=== PATIENT | female | born 1960 | race Caucasian/White ===

== ENCOUNTER 2023-06-05 16:06 | Outpatient (RCR) | payer OTHER, SELFPAY | END 2023-06-05 23:59 | disposition home or self-care (01) | LOC: RPT 16:06 | PROVIDERS: ATTENDING PHYSICIAN Anesthesiology; FAMILY PHYSICIAN Internal Medicine | DX: M54.16 Radiculopathy, lumbar region (principal); Z73.6 Limitation of activities due to disability | CPT/HCPCS: 97010; 97110; 97112; 97140 ==

== ENCOUNTER 2023-06-21 16:29 | Outpatient (RCR) | payer OTHER, SELFPAY | END 2023-06-21 23:59 | disposition home or self-care (01) | LOC: RPT 16:29 | PROVIDERS: ATTENDING PHYSICIAN Anesthesiology; FAMILY PHYSICIAN Internal Medicine | DX: M54.16 Radiculopathy, lumbar region (principal); Z73.6 Limitation of activities due to disability | CPT/HCPCS: 97010; 97110 ==

== ENCOUNTER 2023-08-15 06:18 | Inpatient (IN) | payer OTHER, SELFPAY ==
--- NOTE | 2023-07-18 10:11 | CM ---
Patient is scheduled for lumbar spine surgery on 08/15/23. Spoke with patient prior to surgery via telephone. Introduced role of the Orthopedic Navigator. Patient reports that she lives alone in a one story home. There is one step to enter. She
currently functions independently. She has a shower seat and back brace. She has never had VN services. PCP is Regla Pinon.
Discussed orthopedic program, post surgical plans and tentative plan for patient to return home when directed by surgeon. Patient is in agreement with tentative plan and states that her sister will be staying with her initially.
Plan: Orthopedic Navigator will remain available to assist with the care of patient and will reassess discharge needs after surgery.
[2023-07-26 07:44] VITALS: BMI 36.5
[2023-07-26 08:58] LABS: Hematocrit 33.9 % (37.0-47.0); Hemoglobin 10.7 g/dL (12.0-16.0); Mean Corp Hgb Conc. 31.6 g/dL (33.0-37.0); Mean Corpuscular Hgb 26.6 pg (27.0-31.0); Mean Corpuscular Volume 84.1 fL (81.0-99.0); Mean Platelet Volume 9.7 fL (7.4-10.4); Platelet Count 289 10^3/uL (130-400); Red Blood Cell Count 4.03 10^6/uL (4.20-5.40); Red Cell Dist. Width 15.4 % (11.5-14.5); White Blood Cell Count 4.5 10^3/uL (4.8-10.8)
[2023-07-26 09:22] LABS: ALT (SGPT) 22 U/L (0-35); AST (SGOT) 33 U/L (14-36); Albumin 3.8 g/dl (3.5-5.0); Alkaline Phosphatase 69 U/L (38-126); Blood Urea Nitrogen 21 mg/dl (7-17); Calcium 9.3 mg/dl (8.4-10.2); Carbon Dioxide 29 mmol/L (22-30); Chloride 106 mmol/L (98-107); Estimated Creatinine Clearance 77 ml/min; Glucose 79 mg/dl (70-99); Potassium 4.7 mmol/L (3.5-5.1); Sodium 138 mmol/L (135-145); Total Bilirubin 0.5 mg/dl (0.2-1.3); eGFR > 60.00
[2023-07-26 15:17] VITALS: BMI 36.5
[2023-08-15] VITALS (15 sets, daily range): BP systolic 40–141; BP diastolic 67–93; PULSE 82
[2023-08-15] MEDS: TYLENOL 1000 MG PO ×2 (10:56→17:27)
[2023-08-15] MEDS: CELEBREX 200 MG PO (10:57)
[2023-08-15] MEDS: LYRICA 150 MG PO (10:57)
[2023-08-15] MEDS: SKELAXIN 800 MG PO (10:57)
[2023-08-15] MEDS: NORMOSOL-R 1000 IV ×2 (11:15→17:27)
[2023-08-15] MEDS: DILAUDID 0.5 MG IV ×2 (17:06→22:15)
--- NOTE | 2023-08-15 19:41 | PTCARENOTE ---
Received patient from PACU around 1820 via bed in stable condition. Moderate amount of drainage on 4x4 gauze on lower back. Hemovac in place. Patient reeducated on log rolling and not twisting in bed. Daughter at bedside. Call askew in reach.
[2023-08-15] MEDS: ROXICODONE 5 MG PO (20:01)
[2023-08-15] MEDS: COLACE 100 MG PO (20:01)
[2023-08-15] MEDS: SENOKOT 17.1999999999999993 MG PO (20:01)
[2023-08-15] MEDS: ANCEF 5 IV (20:02)
[2023-08-15] MEDS: ZOLOFT PO (20:02)
[2023-08-15] MEDS: KEPPRA 750 MG PO (20:05)
[2023-08-15] MEDS: ROXICODONE 10 MG PO (21:38)
[2023-08-15] MEDS: ATIVAN 0.5 MG PO (21:39)
[2023-08-16] MEDS: LYRICA 75 MG PO ×2 (00:11→10:39)
[2023-08-16] MEDS: TYLENOL 1000 MG PO ×3 (00:11→10:40)
[2023-08-16] MEDS: BENADRYL 25 MG PO (00:11)
[2023-08-16] MEDS: NORMOSOL-R 1000 IV (00:12)
[2023-08-16] MEDS: ROXICODONE 10 MG PO ×2 (01:58→06:05)
[2023-08-16 03:15] VITALS: BP 121/79
[2023-08-16] MEDS: ANCEF 5 IV (04:59)
[2023-08-16 06:07] LABS: Hematocrit 27.2 % (37.0-47.0); Hemoglobin 8.7 g/dL (12.0-16.0)
[2023-08-16 06:36] LABS: Blood Urea Nitrogen 14 mg/dl (7-17); Calcium 8.6 mg/dl (8.4-10.2); Carbon Dioxide 31 mmol/L (22-30); Chloride 102 mmol/L (98-107); Estimated Creatinine Clearance 90 ml/min; Glucose 83 mg/dl (70-99); Sodium 135 mmol/L (135-145); eGFR > 60.00
[2023-08-16 07:50] VITALS: BP 123/74
[2023-08-16] MEDS: ZOLOFT 100 MG PO (07:59)
[2023-08-16] MEDS: COLACE 100 MG PO (07:59)
[2023-08-16] MEDS: ATIVAN 0.5 MG PO (07:59)
[2023-08-16] MEDS: SENOKOT 17.1999999999999993 MG PO (08:00)
[2023-08-16] MEDS: KEPPRA 750 MG PO (08:00)
[2023-08-16] MEDS: NORMOSOL-R IV (08:01)
[2023-08-16] MEDS: NORVASC 5 MG PO (08:01)
--- NOTE | 2023-08-16 08:39 | CM ---
Addendum entered by Peg Espinoza 08/16/23 13:02:
Met with patient and her sister after therapy. Discharge plans were reviewed. They did not express concerns about discharge.
Original Note:
Reviewed chart and held rounds with PT, OT and RN. Patient had planned lumbar spine surgery with Dr. Koehler on 08/15. Met with patient and her daughter at bedside. Confirmed information previously obtained for assessment and discussed discharge plans.
Patient continues to plan to return home at discharge. Her sister and daughter will be staying with her. Reviewed that she will work with PT/OT this morning and that discharge needs will depend on her functional status. However, no needs currently
identified.
Patient has a rolling walker, cane and built in shower seat at home.
Patient will use [facility] pharmacy for discharge prescriptions.
[2023-08-16] MEDS: ROXICODONE 5 MG PO (10:59)
[2023-08-16 11:39] VITALS: BP 111/81; PULSE 75; O2SAT 99
[2023-08-16 11:50] VITALS: BP 119/83
--- NOTE | 2023-08-16 12:58 | W.PN.ORTHO ---
Today's Communication / Plan
-
d/c
Assessment
.
Distal Motor Intact: Yes
Dressing:
Clean, dry and intact.
Assessment:
R knee laxity-XR revealing good alignment of TKA
Plan
.
Surgery / Date: L3-4-5 lami-psf Dr. Koehler 08/15/23
Activity:
Out of bed.
PT/OT
Discharge Plan: Home
Subjective
.
.:
Patient resting comfortably. Reports R knee buckling when walking
Vital Signs and Labs
.
Vital Signs and Labs:
Lab Results
08/16/23 05:52
08/16/23 05:52
Temp Pulse Resp BP Pulse Ox
97.5 F 76 18 119/83 97
08/16/23 11:50 08/16/23 11:50 08/16/23 11:50 08/16/23 11:50 08/16/23 11:50
Physical Exam
-
HEENT: No pallor, cyanosis, or jaundice. Throat clear.
NECK: Supple. No JVD.
RESPIRATORY: Lungs clear to auscultation.
CVS: S1, S2 normal. RRR.� No murmur, rub or gallop.
ABDOMEN: Soft, non-tender. No distension. BS+/normal.
EXTREMITIES: strength equal, no calf pain with palpation
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
--- NOTE | 2023-08-16 13:06 | W.DS.TRANS ---
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
-
Discharge Instructions:
Discharge Diagnosis/Procedures L3-4-5 lami-ps[facility] Dr. Koehler 08/15/23
Diet As tolerated
Activity With Walker
Driving Restrictions No driving
Instructions:
Stand-Alone Forms: [facility] D/[facility].
Changes to Home Medications: Yes
Discharge Medications:
DC Medications w/original date entered in [email or web address]
sertraline 100 mg tablet 100 mg PO DAILY Depression 11/07/16
levetiracetam 250 mg tablet 750 mg PO BID Seizures 05/13/18
zolpidem 5 mg tablet 5 mg PO HSPRN PRN for sleep 05/13/18
amlodipine 10 mg tablet 10 mg PO DAILY ##0 06/04/18
losartan 50 mg tablet 50 mg PO DAILY ##0 06/04/18
cyanocobalamin (vitamin B-12) 5,000 mcg capsule 5,000 mcg PO GRACE Supplement 03/17/23
gabapentin 300 mg capsule 300 mg PO Q8H Neurological Condition 07/23/23
Saccharomyces boulardii 250 mg capsule (Florastor) 250 mg PO BID #1 cap 08/16/23
acetaminophen 325 mg capsule (Tylenol) 650 mg PO QID #2 caps 08/16/23
cephalexin 500 mg capsule 500 mg PO QID infection prevention #20 caps 08/16/23
docusate sodium 100 mg capsule (Colace) 100 mg PO BID stool softner #1 cap 08/16/23
lorazepam 0.5 mg tablet 0.5 mg PO HS #0 tabs 08/16/23
magnesium hydroxide 400 mg/5 mL oral suspension (Milk of Magnesia) 30 ml PO HS PRN Constipation #1 mL 08/16/23
oxycodone 5 mg tablet 5 - 10 mg PO Q6HPRN PRN 1 tab moderate-2 tabs severe pain #30 tabs 08/16/23
prednisone 10 mg tablet 40 mg PO TAPER inflammation #20 tabs 08/16/23
sennosides 8.6 mg tablet (Senokot) 17.2 mg PO BID laxative #2 tabs 08/16/23
Home Medication Changes
cephalexin 500 mg capsule 500 mg PO QID infection prevention #20 caps 08/16/23
lorazepam 0.5 mg tablet 0.5 mg PO HS #0 tabs 08/16/23
oxycodone 5 mg tablet 5 - 10 mg PO Q6HPRN PRN 1 tab moderate-2 tabs severe pain #30 tabs 08/16/23
prednisone 10 mg tablet 40 mg PO TAPER inflammation #20 tabs 08/16/23
Pending Results: No
[2023-08-16] MEDS: DECADRON 6 MG IV (13:11)
[2023-08-16 13:39] VITALS: BP 120/83; PULSE 70; O2SAT 97
== END 2023-08-16 13:39 | disposition home or self-care (01) | DRG 460 ==
LOC: 2 SOUTH 06:18
PROVIDERS: ADMITTING PHYSICIAN Orthopaedic Surgery Orthopaedic Surgery of the Spine; FAMILY PHYSICIAN Internal Medicine; REFERRING PHYSICIAN Physician Assistant Medical
PROC: 0SG1071 Fusion of 2 or more Lumbar Vertebral Joints with Autologous Tissue Substitute, Posterior Approach, Posterior Column, Open Approach (ICD-10-PCS; 2023-08-15)
PROC: 01NB0ZZ Release Lumbar Nerve, Open Approach (ICD-10-PCS; 2023-08-15)
DX: M48.062 Spinal stenosis, lumbar region with neurogenic claudication (principal); E66.9 Obesity, unspecified; G40.909 Epilepsy, unspecified, not intractable, without status epilepticus; I10 Essential (primary) hypertension; E78.5 Hyperlipidemia, unspecified; F32.A Depression, unspecified; F41.9 Anxiety disorder, unspecified; G47.33 Obstructive sleep apnea (adult) (pediatric); D64.9 Anemia, unspecified; M43.16 Spondylolisthesis, lumbar region; Z68.36 Body mass index [BMI] 36.0-36.9, adult
CPT/HCPCS: 36415; 72100; 73560; 76000; 80048; 80053; 85014; 85018; 85027; 86850; 86900; 86901; 87070; 93005; 94660; 97162; 97166; C1713; C1729; C1776

== ENCOUNTER 2023-10-15 17:51 | Outpatient (RCR) | payer OTHER, SELFPAY | END 2023-10-15 23:59 | disposition home or self-care (01) | LOC: RPT 17:51 | PROVIDERS: ATTENDING PHYSICIAN Physician Assistant Medical; FAMILY PHYSICIAN Internal Medicine | DX: Z47.89 Encounter for other orthopedic aftercare (principal); M48.062 Spinal stenosis, lumbar region with neurogenic claudication; M43.16 Spondylolisthesis, lumbar region; Z73.6 Limitation of activities due to disability; R26.89 Other abnormalities of gait and mobility; Z98.1 Arthrodesis status | CPT/HCPCS: 97110; 97112; 97161 ==

== ENCOUNTER 2023-11-14 17:04 | Outpatient (RCR) | payer OTHER, SELFPAY | END 2023-11-14 23:59 | disposition home or self-care (01) | LOC: RPT 17:04 | PROVIDERS: ATTENDING PHYSICIAN Physician Assistant Medical; FAMILY PHYSICIAN Internal Medicine | DX: M48.062 Spinal stenosis, lumbar region with neurogenic claudication (principal); M43.16 Spondylolisthesis, lumbar region; Z98.1 Arthrodesis status; Z73.6 Limitation of activities due to disability | CPT/HCPCS: 97110; 97112; 97140 ==

== ENCOUNTER → 2024-01-14 16:55 | Outpatient (REF) | payer OTHER, SELFPAY | LOC: RAD 16:55 | PROVIDERS: ATTENDING PHYSICIAN Internal Medicine | DX: M79.672 Pain in left foot (principal) | CPT/HCPCS: 73630 ==

== ENCOUNTER → 2024-01-30 16:44 | Outpatient (REF) | payer OTHER, SELFPAY | LOC: WDC 16:44 | PROVIDERS: ATTENDING PHYSICIAN Obstetrics & Gynecology Gynecology; FAMILY PHYSICIAN Internal Medicine | DX: Z12.31 Encounter for screening mammogram for malignant neoplasm of breast (principal) | CPT/HCPCS: 77063; 77067 ==

== ENCOUNTER → 2024-03-05 17:21 | Outpatient (REF) | payer OTHER, SELFPAY | LOC: PAVMRI 17:21 | PROVIDERS: ATTENDING PHYSICIAN Specialist | DX: M25.511 Pain in right shoulder (principal) | CPT/HCPCS: 73221 ==

== ENCOUNTER → 2024-03-31 12:06 | Outpatient (REF) | payer OTHER, SELFPAY | LOC: RCS 12:06 | PROVIDERS: ATTENDING PHYSICIAN Specialist; FAMILY PHYSICIAN Internal Medicine | DX: Z01.818 Encounter for other preprocedural examination (principal) | CPT/HCPCS: 93005 ==

== ENCOUNTER → 2024-04-17 07:34 | Outpatient (REF) | payer OTHER, SELFPAY | LOC: MRI 07:34 | PROVIDERS: ATTENDING PHYSICIAN Orthopaedic Surgery Orthopaedic Surgery of the Spine; FAMILY PHYSICIAN Internal Medicine | DX: M48.062 Spinal stenosis, lumbar region with neurogenic claudication (principal) | CPT/HCPCS: 72158; A9575 ==

== ENCOUNTER → 2024-10-29 13:31 | Outpatient (REF) | payer MEDICARE, SELFPAY | LOC: PAVMRI 13:31 | PROVIDERS: ATTENDING PHYSICIAN Orthopaedic Surgery Orthopaedic Surgery of the Spine; FAMILY PHYSICIAN Internal Medicine | DX: M48.062 Spinal stenosis, lumbar region with neurogenic claudication (principal); M43.16 Spondylolisthesis, lumbar region | CPT/HCPCS: 72158; A9575 ==

== ENCOUNTER → 2025-01-01 12:26 | Outpatient (REF) | payer MEDICARE, SELFPAY | LOC: DHSLP 12:26 | PROVIDERS: ATTENDING PHYSICIAN Internal Medicine; FAMILY PHYSICIAN Internal Medicine | DX: G47.33 Obstructive sleep apnea (adult) (pediatric) (principal) | CPT/HCPCS: 95800 ==

== ENCOUNTER → 2025-04-29 14:01 | Outpatient (REF) | payer MEDICARE, SELFPAY | LOC: WDC 14:01 | PROVIDERS: ATTENDING PHYSICIAN Obstetrics & Gynecology Gynecology; FAMILY PHYSICIAN Internal Medicine | DX: Z12.39 Encounter for other screening for malignant neoplasm of breast (principal); Z12.31 Encounter for screening mammogram for malignant neoplasm of breast | CPT/HCPCS: 77063; 77067 ==